=== PATIENT | female | born 1975 | race Caucasian/White ===

== ENCOUNTER 2019-05-08 09:57 | Emergency (ER) | payer MEDICAID ==
[~2019-05-08] VITALS: Ht 152.4 cm; Wt 52.2 kg
[2019-05-08 10:00] VITALS: Ht 152.4 cm; Wt 52.2 kg
[2019-05-08 10:39] LABS: BASOPHIL % 0.4 % (0-2); PLATELET COUNT 245 x10^3mcL (130-400); RED CELL DISTRIBUTION WIDTH 14.2 % (11.5-14.5)
[2019-05-08 10:55] LABS: CALCIUM 8.3 mg/dL (8.5-10.1); CARBON DIOXIDE 26.6 mmol/L (21-32); CHLORIDE SERUM 105 mmol/L (98-107); CREATININE SERUM 0.9 mg/dL (0.6-1.0); GFR1 > 60 mL/min; GLUCOSE SERUM 105 mg/dL (74-106); POTASSIUM SERUM 3.2 mmol/L (3.5-5.1); SODIUM SERUM 142 mmol/L (136-145)
[2019-05-08 10:59] LABS: ALBUMIN 3.6 g/dL (3.4-5.0); ALKALINE PHOSPHATASE 52 U/L (46-116); ALT/SGPT 16 U/L (14-59); AST/SGOT 12 U/L (15-37); BILIRUBIN TOTAL 0.38 mg/dL (0.20-1.00); TOTAL PROTEIN, SERUM 6.8 g/dL (6.4-8.2)
[2019-05-08 11:01] LABS: microscopic required? YES; urine erythrocyte NEGATIVE (NEGATIVE)
[2019-05-08 11:18] LABS: AMPHETAMINE QUAL UR POSITIVE (See below)
[2019-05-08 15:10] VITALS: BP 146/71
== END 2019-05-08 15:10 | disposition home or self-care (01) ==
LOC: ED 09:57 → EDBD 09:57 → ED 15:10
PROVIDERS: Emergency Medicine
DX: N39.0 Urinary tract infection, site not specified (principal); F15.10 Other stimulant abuse, uncomplicated
CPT/HCPCS: 82962; G0480; J0696; J7030